=== PATIENT | female | born 1995 | race African-American/Black ===

== ENCOUNTER 2017-05-26 17:48 | Inpatient (IN) | payer BC ==
[~2017-05-26] VITALS: Ht 167.6 cm; Wt 81.6 kg
[2017-05-26] MEDS ORDERED: PNV1TABL76 PO (18:04)
[2017-05-26] MEDS ORDERED: LOPHC5 PO (18:23)
[2017-05-26] MEDS ORDERED: METHYLERGONOVINE MALEATE 0.2 MG/ML IM PRN (21:00)
[2017-05-26] MEDS ORDERED: NALOXONE HCL 0.4 MG/ML 1ML VIAL IM PRN (21:00)
[2017-05-26] MEDS ORDERED: DEXT 5%/LR + PITOCIN 20UNITS/L 1,000 ML IV SCH (21:00)
[2017-05-26] MEDS ORDERED: LIDOCAINE HCL 1% 20ML VIAL (Pyxis) INJ INFIL NR (21:00)
[2017-05-26] MEDS ORDERED: BUTORPHANOL TARTRATE 2 MG/ML VIAL IV PRN (21:00)
[2017-05-26] MEDS ORDERED: CARBOPROST TROMETHAMINE 250 MCG/ML AMPUL IM PRN (21:00)
[2017-05-26] MEDS ORDERED: DINOPROSTONE 10MG VAGINAL INSERT VG SCH (21:17)
[2017-05-26] MEDS: DEXT 5%/LACTATED RINGERS 1,000 ML IV SCH (21:57)
[2017-05-26 22:10] LABS: BASOPHILS % 0.2 % (0.0-2.0); EOSINOPHILS % 1.5 % (0.0-5.0); HEMATOCRIT. 41.3 % (36.0-48.0); HEMOGLOBIN. 13.8 g/dL (12.0-16.0); LYMPHOCYTES % 23.4 % (20.0-50.0); MEAN CORPUSCULAR VOLUME 86.5 fL (81.0-99.0); MEAN PLATELET VOLUME 9.8 fl (7.4-10.4); MONOCYTES % 5.5 % (2.0-8.0); NEUTROPHILS % 69.4 % (40.0-76.0); PLATELET 215 x1000/uL (130-400); RED BLOOD CELL COUNT 4.77 mill/uL (4.2-5.4); RED CELL DISTRIBUTION WIDTH 14.9 % (11.6-14.6)
[2017-05-26] MEDS: METOPROLOL TARTRATE 100MG TABLET PO SCH (22:14)
[2017-05-26 22:17] LABS: PARTIAL THROMBOPLASTIN TIME 31.3 sec (23.4-31.0); PROTHROMBIN TIME 10.7 sec (9.4-11.6)
[2017-05-26 22:58] LABS: HEPATITIS B SURFACE ANTIGEN NEGATIVE; RUBELLA IGG 100.5 IU/mL (4.99-10)
[2017-05-27] MEDS: LACTATED RINGERS 1,000 ML IV SCH ×3 (05:44→22:07)
[2017-05-27] MEDS: METOPROLOL TARTRATE 100MG TABLET PO SCH (10:21)
[2017-05-27] MEDS ORDERED: PENICILLIN G POTASSIUM 5 MMU in DEXT 5% WATER 100 ML IV NR ×4 (21:00)
[2017-05-28] MEDS ORDERED: PENICILLIN G POTASSIUM 2.5 MMU in DEXTROSE 5% WATER 50 ML IV SCH ×3 (01:00→06:45)
[2017-05-28] MEDS: PENICILLIN G POTASSIUM 2.5 MMU in DEXTROSE 5% WATER 50 ML IV SCH ×3 (03:03→11:01)
[2017-05-28] MEDS: LACTATED RINGERS 1,000 ML IV SCH (06:26)
[2017-05-28] MEDS ORDERED: DEXT 5%/LR + PITOCIN 20UNITS/L 1,000 ML IV SCH (06:38)
[2017-05-28] MEDS ORDERED: LACTATED RINGERS 1,000 ML IV SCH (06:45)
[2017-05-28] MEDS ORDERED: LIDOCAINE HCL 1% 20ML VIAL (Pyxis) INJ INFIL SCH (06:45)
[2017-05-28] MEDS ORDERED: NALOXONE HCL 0.4 MG/ML 1ML VIAL IM PRN (06:45)
[2017-05-28] MEDS ORDERED: BUTORPHANOL TARTRATE 2 MG/ML VIAL IV PRN (06:45)
[2017-05-28] MEDS ORDERED: CARBOPROST TROMETHAMINE 250 MCG/ML AMPUL IM PRN (06:45)
[2017-05-28] MEDS ORDERED: METHYLERGONOVINE MALEATE 0.2 MG/ML IM PRN (06:45)
[2017-05-28] MEDS: METOPROLOL TARTRATE 100MG TABLET PO SCH ×2 (09:04→22:34)
[2017-05-28] MEDS: DEXT 5%/LACTATED RINGERS 1,000 ML IV SCH (15:13)
[2017-05-28] MEDS ORDERED: FENTANYL CITRATE/PF 50MCG/ML 2ML VIAL ONE ×2 (17:12→23:55)
[2017-05-28] MEDS ORDERED: BUPIVACAINE HCL/PF 0.25% (2.5MG/ML) 10ML ONE (17:12)
[2017-05-28] MEDS ORDERED: BUPIVACAINE HCL/NS/PF EPIDURAL 100 ML EP NR (18:00)
[2017-05-28] MEDS ORDERED: DIPHENHYDRAMINE 50MG/ML VIAL IM PRN (18:00)
[2017-05-28] MEDS ORDERED: ONDANSETRON HCL 4MG/2ML VIAL IV PRN (18:00)
[2017-05-28] MEDS ORDERED: CEFAZOLIN SODIUM 1000MG/VIAL ONE (23:41)
[2017-05-28] MEDS ORDERED: OXYTOCIN 10 UNITS/ML 1ML ONE (23:41)
[2017-05-28] MEDS ORDERED: SODIUM CHLORIDE 0.9% 10ML VIAL ONE (23:41)
[2017-05-28] MEDS ORDERED: MIDAZOLAM HCL 2 MG/2 ML VIAL ONE (23:56)
[2017-05-28] MEDS ORDERED: MORPHINE SULFATE/PF 1MG/ML 10ML AMP ONE (23:56)
[2017-05-29] MEDS ORDERED: DEXAMETHASONE 4MG/ML 1ML VIAL ONE (00:02)
[2017-05-29] MEDS ORDERED: ONDANSETRON HCL 4MG/2ML VIAL ONE (00:02)
[2017-05-29] MEDS ORDERED: LIDOCAINE HCL 2%/EPINEPHRINE/PF 10 ML VIAL ONE (00:02)
[2017-05-29] MEDS ORDERED: ESMOLOL HCL 10MG/ML 10ML VIAL IV ONE (00:07)
[2017-05-29] MEDS ORDERED: DEXT 5%/LR + PITOCIN 20UNITS/L 1,000 ML IV SCH (01:33)
[2017-05-29] MEDS ORDERED: IBUPROFEN 400MG TABLET PO PRN (01:45)
[2017-05-29] MEDS ORDERED: ONDANSETRON HCL 4MG/2ML VIAL IV PRN (01:45)
[2017-05-29] MEDS ORDERED: LANOLIN OINT 0.25 GM TUBE TOP PRN (01:45)
[2017-05-29] MEDS ORDERED: RHO(D) IMMUNE GLOBULIN 300 MCG/SYR IM PRN (01:45)
[2017-05-29 05:15] VITALS: BP 109/72
[2017-05-29 06:30] VITALS: BP 106/65
[2017-05-29 07:30] VITALS: BP 107/59
[2017-05-29] MEDS: KETOROLAC 30MG/ML VIAL IV SCH ×2 (08:57→14:55)
[2017-05-29 12:43] LABS: HEMATOCRIT. 33.5 % (36.0-48.0); MEAN CORPUSCULAR HEMOGLOBIN 28.3 pg (28.0-32.0); MEAN CORPUSCULAR VOLUME 86.3 fL (81.0-99.0); MEAN PLATELET VOLUME 9.9 fl (7.4-10.4); PLATELET 211 x1000/uL (130-400); RED BLOOD CELL COUNT 3.88 mill/uL (4.2-5.4); RED CELL DISTRIBUTION WIDTH 14.6 % (11.6-14.6)
[2017-05-29 13:32] LABS: PLATELET ESTIMATE NORMAL
[2017-05-29 16:38] VITALS: BP 104/65
[2017-05-29 19:40] VITALS: BP 107/74
[2017-05-29 23:35] VITALS: BP 102/66
[2017-05-30] MEDS: METOPROLOL TARTRATE 25MG TABLET PO SCH ×2 (00:02→21:25)
[2017-05-30 03:25] VITALS: BP 92/50
[2017-05-30] MEDS: HYDROCODONE/ACETAMINOPHEN 5/325MG TABLET PO PRN ×3 (03:33→17:20)
[2017-05-30 08:52] VITALS: BP 107/72
[2017-05-30 09:54] LABS: BASOPHILS % 0.1 % (0.0-2.0); EOSINOPHILS % 0.9 % (0.0-5.0); HEMATOCRIT. 31.1 % (36.0-48.0); HEMOGLOBIN. 10.3 g/dL (12.0-16.0); LYMPHOCYTES % 22.3 % (20.0-50.0); MEAN CORPUSCULAR HEMOGLOBIN 28.6 pg (28.0-32.0); MEAN CORPUSCULAR VOLUME 86.9 fL (81.0-99.0); MEAN PLATELET VOLUME 9.5 fl (7.4-10.4); MONOCYTES % 6.6 % (2.0-8.0); NEUTROPHILS % 70.1 % (40.0-76.0); PLATELET 193 x1000/uL (130-400); RED BLOOD CELL COUNT 3.58 mill/uL (4.2-5.4); RED CELL DISTRIBUTION WIDTH 14.8 % (11.6-14.6)
[2017-05-30 15:57] VITALS: BP 112/76
[2017-05-30 21:00] VITALS: BP 126/81
[2017-05-31] VITALS: BP 115/75
[2017-05-31 03:55] VITALS: BP 113/73
[2017-05-31] MEDS: HYDROCODONE/ACETAMINOPHEN 5/325MG TABLET PO PRN ×4 (04:01→17:32)
[2017-05-31 08:30] VITALS: BP 104/65
[2017-05-31] MEDS: IBUPROFEN 800MG TABLET PO PRN ×2 (09:16→21:42)
[2017-05-31 15:55] VITALS: BP 108/76
[2017-05-31 20:00] VITALS: BP 118/81
[2017-05-31] MEDS: METOPROLOL TARTRATE 25MG TABLET PO SCH (21:43)
[2017-05-31] MEDS ORDERED: BISACODYL 5MG TABLET PO PRN (23:30)
[2017-06-01] MEDS ORDERED: BISACODYL 5MG TABLET PO PRN ×2 (01:00→01:15)
[2017-06-01] MEDS: HYDROCODONE/ACETAMINOPHEN 5/325MG TABLET PO PRN (01:23)
[2017-06-01] MEDS ORDERED: TETANUS, DIPHTHERIA, PERTUSSIS VAC/PF 0.5ML (>7YR OLD) IM ONE (06:00)
[2017-06-01 06:02] VITALS: BP 105/70
[2017-06-01 06:28] LABS: HEMATOCRIT 31.1 % (36.0-48.0); HEMOGLOBIN 10.2 g/dL (12.0-16.0); MEAN CORPUSCULAR HEMOGLOBIN 28.2 pg (28.0-32.0); MEAN CORPUSCULAR VOLUME 85.8 fL (81.0-99.0); PLATELET 233 x1000/uL (130-400); RED BLOOD CELL COUNT 3.62 mill/uL (4.2-5.4); RED CELL DISTRIBUTION WIDTH 14.3 % (11.6-14.6)
[2017-06-01 07:56] VITALS: BP 108/70
[2017-06-01] MEDS ORDERED: METOPROLOL TARTRATE 100MG TABLET PO SCH (09:00)
[2017-06-01] MEDS ORDERED: DOCUSATE SODIUM 100MG CAPSULE PO SCH (09:00)
== END 2017-06-01 11:00 | disposition home or self-care (01) | DRG 765 ==
LOC: OBSVTOIN 17:48 → L&D 17:48 → 7EST PP/OB 05-29 05:30
PROVIDERS: ADMIT Obstetrics & Gynecology; ATTEND Obstetrics & Gynecology
PROC: 10D00Z1 Extraction of Products of Conception, Low, Open Approach (ICD-10-PCS; principal; 2017-05-29 01:30)
DX: O48.0 Post-term pregnancy (principal); O99.42 Diseases of the circulatory system complicating childbirth; D62 Acute posthemorrhagic anemia; O99.12 Other diseases of the blood and blood-forming organs and certain disorders involving the immune mechanism complicating childbirth; I48.91 Unspecified atrial fibrillation; O99.03 Anemia complicating the puerperium; O36.8130 Decreased fetal movements, third trimester, not applicable or unspecified; O41.00X0 Oligohydramnios, unspecified trimester, not applicable or unspecified; O62.2 Other uterine inertia; O69.81X0 Labor and delivery complicated by cord around neck, without compression, not applicable or unspecified; O77.0 Labor and delivery complicated by meconium in amniotic fluid; D72.829 Elevated white blood cell count, unspecified; Z37.0 Single live birth; Z3A.41 41 weeks gestation of pregnancy
CPT/HCPCS: 36415; 76805; 76818; 84443; 85025; 85027; 85610; 85730; 86592; 86703; 86762; 86850; 86900; 87340; 88307; 90715; A4216; J0690; J1100; J1885; J2250; J2274; J2405; J2540; J2590; J3010; J3490; J7060; J7120; A4315